=== PATIENT | female | born 1960 ===

== ENCOUNTER → 2024-12-02 13:23 | Outpatient (REF) | payer BC, SELFPAY | LOC: RAD 13:23 | PROVIDERS: ATTENDING PHYSICIAN Obstetrics & Gynecology Gynecologic Oncology; FAMILY PHYSICIAN Physician Assistant | DX: D47.3 Essential (hemorrhagic) thrombocythemia (principal); R63.4 Abnormal weight loss; D50.8 Other iron deficiency anemias; D51.8 Other vitamin B12 deficiency anemias; C56.9 Malignant neoplasm of unspecified ovary; D70.1 Agranulocytosis secondary to cancer chemotherapy; R11.0 Nausea; T45.1X5A Adverse effect of antineoplastic and immunosuppressive drugs, initial encounter | CPT/HCPCS: 71260; 74177; Q9967 ==

== ENCOUNTER 2024-12-20 08:27 | Inpatient (IN) | payer BC, SELFPAY ==
[2024-11-30 11:50] LABS: Hematocrit 20.8 % (37.0-47.0); Hemoglobin 6.9 g/dL (12.0-16.0); Mean Corp Hgb Conc. 33.2 g/dL (33.0-37.0); Mean Corpuscular Volume 100.0 fL (81.0-99.0); Platelet Count 124 10^3/uL (130-400); Red Cell Dist. Width 15.5 % (11.5-14.5)
[2024-11-30 12:23] LABS: ALT (SGPT) 38 U/L (0-35); AST (SGOT) 27 U/L (14-36); Albumin 4.1 g/dl (3.5-5.0); Alkaline Phosphatase 93 U/L (38-126); Blood Urea Nitrogen 7 mg/dl (7-17); Calcium 8.9 mg/dl (8.4-10.2); Carbon Dioxide 28 mmol/L (22-30); Chloride 102 mmol/L (98-107); Glucose 97 mg/dl (70-99); Potassium 4.1 mmol/L (3.5-5.1); Sodium 137 mmol/L (135-145); Total Protein 6.2 g/dl (6.3-8.2); eGFR > 60.00
[2024-11-30 14:19] VITALS: BMI 20.1
--- NOTE | 2024-12-19 06:26 | W.CON.GYNONC ---
Chief Complaint
-
ovary ca
History of Present Illness
64�year�old��white�female�referred�to�me�by�Dr.�Potz�for�possible�evaluation�of�ovarian�cancer.�she�notes�that�around�6�to�8
weeks�prior�to�the�visit�she�began�experiencing�persistent�but�vague�GI�complaints.�These�consisted�of�bloating,�vaginal constipation,�occasional�diarrhea,�and�intermittent�abdominal�pain.�Brought�the�symptoms�to�the�attention�of�her�primary�care
physician.�A�plain�CT�was�ordered�the�possibility�of�an�intra�abdominal�mass�lesion.�Sequently�CT�of�the�abdomen�and�pelvis�done
with�IV�and�oral�contrast�was�subsequently�performed[facility]at[facility]�showing�evidence�of�abdominal�carcinomatosis.
Was�also�ascites�which�was�considered�to�be�potentially�malignant.�No�defined�tumor�mass�was�identified.�Based�on�the�CT�results CA125�was�also�ordered�found�to�be�elevated.�
The�patient�was�in�no�acute�distress�when�seen.�She�had�an�appointment�earlier�this�year�with�Dr�Bruce�Lindsey�in�[place]�including�a
pelvic�exam.�There�were�no�worrisome�findings.�She�is�also�current�with�EGD�and�colonoscopy.�She�was�in�no�distress�when�seen but�she�was�quite�anxious.
Patient�presents�to�the�office�for�preop�evaluation.�She�underwent�neoadjuvant�chemotherapy�with�bevacizumab�Taxol�and carboplatin�May�30,�2025�as�well�a11/02/2024,�and�subsequently�received�only�Taxol�and�carboplatin�on�Lisset�14.�Her�CA125�was
239�on�day�1�cycle�1�and�diminished�to�20.6�on�Lisset�14. Patient�had�significant�anemia�couple�weeks�ago,�she�received�2�units�of�packed�red�blood�cell�transfusion.
Patient's�genetic�testing�was�inconclusive,�p53�mutation�was�identified�but�it�has�a�complex�genetic�findings�that�requires�special interpretation
Biopsy�of�the�tumor�May�23,�2024�shows�poorly�differentiated�carcinoma�gynecologic�origin.�P53�shows�normal�pattern�of expression
Foundation�testing�was�performed,�HRD�signature�was�negative,�Microsatellite�was�stable�and�TMB�was�low�at�6,�PD�L1�was�0
Past�medical�history�includes�hypertension,�JAK2�mutation,�essential�hemorrhagic�thrombocythemia,�iron�deficiency�anemia,�agerelated�osteoporosis Past�surgical�history�includes�vaginal�prolapse�repair,�cataract,�tubal�ligation
Family�history�Sister�with�breast�cancer�diagnosed�in�her�40s�she�is�unsure�whether�genetic�testing�was�done Social�history�patient�denies�current�tobacco�use,�she�is�,�drinks�alcohol�socially�less�than�1�2�drinks�per�week,�denies�any
drug�or�marijuana�abuse Medications�include Aspirin�81�mg Folic�acid�400�mcg�tablet Hydrea�500�mg�capsule Hydrochlorothiazide�25�mg�tablet Lisinopril�10�mg�p.o.�daily Prolia�60�mgsubcutaneous�injection
Medical History
Allergies
Allergies reflect when allergies were last updated in [facility].
No Known Allergies Allergy (Unverified 12/13/24 11:19)
Physical Exam
Physical Exam
Pelvic�Examination: External�normal�labia,�urethra,�anus.� Vagina:�Normal�mucosa.� Cervix:�normal�appearance,�scarred,�no�discharge.� Uterus:�normal�size.� Bimanual�examination�reveals�nodularity�in�the�posterior�cul�de�sac,�
RVE:�Posterior�cul�de�sac�nodularity�is�again�appreciated� General:�Well�developed,�well�nourished�patient.�In�no�acute�distress.�Patient�appears�stated�age. Head:�Atraumatic�and�normocephalic.
Eyes:�EOMI.�Sclerae�are�anicteric.�Pupils�are�equal,�round,�reactive�to�light�and�accommodation.�Conjunctivae�and�lids�are�normal in�appearance. Ears,�Nose,�Throat,�and�Mouth:�Normal�oral�mucosa�and�oropharynx.
Neck:�No�thyromegaly.�No�cervical�lymphadenopathy.�Neck�is�supple.�No�cervical�masses�present.�Trachea�is�midline. Lungs:�Clear�to�auscultation.�Good�air�movement�bilaterally.�No�respiratory�distress.
Cardiac:�Regular�rate.�Regular�rhythm.�No�murmurs�appreciated.�No�S3/S4�gallop.�No�rubs�or�clicks�noted.�PMI�is�not�displaced. Abdomen:�Abdomen�is�soft.�Non�tender�to�palpation.�Non�distended.�Without�masses.�Bowel�sounds�active.�No�ascites�present.
No�hepatomegaly.�No�splenomegaly.�No�hernia�present. Extremities:�No�edema.�No�cyanosis.�No�digital�clubbing.�No�discoloration. Hematologic/Lymphatic:�No�palpable�lymphadenopathy.�No�petechia.�No�purpura.
Musculoskeletal:�Normal�range�of�motion.�Strength�and�Tone�are�normal. Skin:Non�jaundiced.�No�petechia.�No�purpura. Neurologic:�Speech�is�fluent.�Normal�gait�and�station.�Cranial�nerves�intact.�There�are�no�sensory�deficits.�Motor�strength�equal
and�symmetrical.
Results
-
11/30/24 10:33
11/30/24 10:33
Impression / Plan
-
64�year�old�woman�who�is�presenting�with�findings�of�carcinomatosis�on�recent�CT�abdomen�and�pelvis.�,�Pathology�biopsy indicative�of�poorly�differentiated�gynecologic�malignancy�now�status�post�3�cycles�of�neoadjuvant�chemotherapy.�Most�recent�CT
shows�excellent�response�and�her�CA125�is�now�normal�range.�I�plan�to�proceed�with�surgery�as�planned�for�[place]�12. The�patient�will�then�be�scheduled�for�interval�debulking�surgery�[place]�.
She�understands�that�the�procedure�will�likely�include�laparotomy�with�AUGUSTIN/BSO�omentectomy�tumor�debulking�possibly�pelvic�or aortic�lymph�node�biopsies�and�bowel�resection.�
Informed�consent�was�signed�in�the�office�today.�Risk�of�surgery�including�infection�bleeding�injury�to�adjacent�organs�DVT pulmonary�embolism�and�cardiovascular�complications�were�discussed�and�reviewed.�Patient�will�resume�her�chemotherapy�once
fully�recovered�from�surgery. We�do�plan�to�have�repeat�labs�performed�in�[facility]'s�office Patient�will�return�back�in�approximately�2�weeks�postop�for�staple�removal�and�first�postop�visit
[2024-12-20] VITALS (12 sets, daily range): BP systolic 85–144; BP diastolic 54–86; BMI 20.1
[2024-12-20] MEDS: CELEBREX 200 MG PO (09:10)
[2024-12-20] MEDS: NEURONTIN 300 MG PO (09:10)
[2024-12-20] MEDS: NORMOSOL-R/PLASMALYTE-A 1000 IV (09:10)
[2024-12-20] MEDS: TYLENOL 1000 MG PO (09:11)
[2024-12-20] MEDS: HEPARIN 5000 UNITS SC (09:35)
--- NOTE | 2024-12-20 13:02 | W.IMMPOSTOP ---
Surgical Immed Post Op Note
-
Primary Surgeon: Hammad Hodge MD
Assisting Surgeon: Pam Samayoa PA-C
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
Post-op Diagnosis: Same pending final pathology
Procedure Performed: Exploratory laparotomy, radical tumor debulking including total abdominal hysterectomy, bilateral salpingo-oophorectomy, infracolic and gastrocolic omentectomy, resection of multiple peritoneal surfaces, pelvic lymph node
dissection, appendectomy
Anesthesia Type: General Endotracheal intubation
Specimen / Cultures: Omentum, uterus and cervix, right and left tube and ovary, right and left pelvic peritoneum, posterior cul-de-sac, anterior cul-de-sac, right paracolic gutter, right pelvic lymph nodes, appendix, small bowel implants
Estimated Blood Loss: 300 cc
Complications: None
Operative Findings: Intraoperative evaluation of the abdomen reveals excellent response to chemotherapy with decreased size of omental cake but there is residual omental disease, right and left diaphragms are normal right and left lobe of the liver
are normal gallbladder is intact stomach and lesser curvature does not exhibit any residual disease. Spleen is normal. Ascending transverse and descending colon was examined and there was only some implants on the cecum and right paracolic gutter
along the length of a ascending colon. There was tumor implants present on right and left pelvic peritoneum as well as posterior cul-de-sac completely resected, there were evidence of tumor on the serosa of the uterus. There was lack of any
significant adenopathy in the retroperitoneum and most enlarged lymph nodes were in the right pelvis. At completion of surgery she has less than 2 mm implants mostly on mid sigmoid as well as several small small bowel loops.
--- NOTE | 2024-12-20 13:12 | OR.RPT ---
Operative Report
Operative Report
Date of procedure: December 20, 2024
Primary Surgeon: Hammad Hodge MD
Assisting Surgeon: Pam Samayoa PA-C
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
Post-op Diagnosis: Same pending final pathology
Procedure Performed: Exploratory laparotomy, radical tumor debulking including total abdominal hysterectomy, bilateral salpingo-oophorectomy, infracolic and gastrocolic omentectomy, resection of multiple peritoneal surfaces, pelvic lymph node
dissection, appendectomy
Anesthesia Type: General Endotracheal intubation
Specimen / Cultures: Omentum, uterus and cervix, right and left tube and ovary, right and left pelvic peritoneum, posterior cul-de-sac, anterior cul-de-sac, right paracolic gutter, right pelvic lymph nodes, appendix, small bowel implants
Estimated Blood Loss: 300 cc
Complications: None
Operative Findings: Intraoperative evaluation of the abdomen reveals excellent response to chemotherapy with decreased size of omental cake but there is residual omental disease, right and left diaphragms are normal right and left lobe of the liver
are normal gallbladder is intact stomach and lesser curvature does not exhibit any residual disease. Spleen is normal. Ascending transverse and descending colon was examined and there was only some implants on the cecum and right paracolic gutter
along the length of a ascending colon. There was tumor implants present on right and left pelvic peritoneum as well as posterior cul-de-sac completely resected, there were evidence of tumor on the serosa of the uterus. There was lack of any
significant adenopathy in the retroperitoneum and most enlarged lymph nodes were in the right pelvis. At completion of surgery she has less than 2 mm implants mostly on mid sigmoid as well as several small small bowel loops.
Procedure in detail: This patient was taken to the operating room and placed in supine position. General anesthesia was administered, she was intubated without any difficulty she was placed in lithotomy position using yellowfin stirrups and prepped
in the abdomen perineum and vagina. Morris catheter was placed under sterile conditions. The patient was draped. Timeout procedure was carried out she received Ancef and Flagyl for prophylaxis. Midline vertical skin incision was made to gain
entry into the peritoneal cavity. A Bookwalter retractor was placed. We explored the abdomen with the findings noted above. Initially omentum was elevated infracolic and gastrocolic portion of the omentum was elevated and completely resected from
hepatic to splenic flexure as well as along the greater curvature of the stomach into the splenic hilum. Care was taken not to injure any vasculature involving the mesentery of the transverse colon as well as pancreas. Vessel sealer was used to
seal and divide multiple omental vessels. Following this we examined the upper abdomen and did not see any other evidence of residual disease I ran the bowel from ligament of Treitz down to the ileocecal valve, there was a portion of a ileum which
was adherent to tumor implants on the floor of the posterior cul-de-sac, the tumor implants was able to be removed superficially and she did not require bowel resection. I then ran the entire small bowel and implants of tumor was removed from the
serosa of the bowel without any difficulty and the mesentery did not have much disease. Cecum was mobilized by opening the peritoneum along the paracolic gutter, implants of the cecum was resected and implants along the right paracolic gutter and
ascending colon was resected and submitted to pathology. Round ligaments were sealed and divided anterior and posterior leaves of the broad ligament were dissected open. Pararectal and paravesical spaces were developed the course of the ureter was
identified and both ureters were tagged with Vesseloops. Anterior cul-de-sac peritoneum was resected and submitted to pathology both IP ligaments were sealed 3 times and divided tubes and ovaries were detached from the uterus and submitted to
pathology separately uterine vessels were skeletonized uterine vessels followed by cardinal ligaments followed by uterosacral ligaments were sealed and divided. Right angle Zeppelin clamps were placed below the level of the cervix, specimen
including cervix and uterus was transected we closed the vagina with a running suture of 0 Vicryl starting from both ends coming to the center and going back to both ends incorporating uterosacral ligaments. The entire peritoneum along the right
and left pelvis was resected including that in the posterior cul-de-sac after the colon was dropped and . These were submitted to pathology there was no injury to uterine vessels or colon. I insufflated the colon with air and filled the
pelvis with water and there was no leakage. Retroperitoneal spaces were examined and there was no significant adenopathy the only enlarged lymph nodes were along the right pelvic lymph nodes along the external iliac artery and vein and these were
removed and submitted to pathology. Appendix was mobilized a large portion of the mesoappendix was sealed and divided with vessel sealer and CLIFTON 60 stapler was fired on the cecum and the specimen was submitted to pathology. We irrigated all
quadrants of the abdomen and there was no other visible residual disease. All laps and instruments were removed we prepared to close the abdomen, the fascia was closed with 0 Vicryl suture ligature starting from both ends coming to the center and
they were tied to each other. Subcutaneous tissue was made's hemostatic, I went ahead and used the 2-0 Monocryl suture in a running fashion to close that incision. Eleanor were used on the skin dressing was applied Morris was left in the bladder
and patient was awakened extubated and returned back to recovery room stable awake and extubated condition. Counts of laps instruments and needle was correct x 2. I was present and scrubbed for entire procedure as dictated above
[2024-12-20] MEDS: DILAUDID 0.25 MG IV ×2 (13:18→14:20)
[2024-12-20 14:00] LABS: Hematocrit 30.4 % (37.0-47.0); Hemoglobin 10.1 g/dL (12.0-16.0); Mean Corp Hgb Conc. 33.2 g/dL (33.0-37.0); Mean Corpuscular Volume 100.0 fL (81.0-99.0); Platelet Count 385 10^3/uL (130-400); Red Cell Dist. Width 16.6 % (11.5-14.5)
[2024-12-20 14:10] LABS: Blood Urea Nitrogen 11 mg/dl (7-17); Calcium 8.4 mg/dl (8.4-10.2); Carbon Dioxide 21 mmol/L (22-30); Chloride 109 mmol/L (98-107); Estimated Creatinine Clearance 69 ml/min; Glucose 96 mg/dl (70-99); Potassium 3.7 mmol/L (3.5-5.1); Sodium 136 mmol/L (135-145); eGFR > 60.00
--- NOTE | 2024-12-20 14:37 | CON.HOSP ---
Addendum entered and electronically signed by Neo Gimenez MD 12/20/24 16:01:
This is an addendum to H&P written by Nikki Zheng on 12/20/2024. �Patient seen and examined independently with [employer].
64-year-old female past medical history of ovarian cancer status post chemotherapy, thrombocytosis, JAK2 mutation, hypertension, anemia, osteoporosis who underwent elective debulking with hysterectomy/omentectomy and appendectomy today. �Hospitalist
consult for medical management.
300 cc blood loss.
Blood pressure 95/54.
Hold antihypertensive medications which she has not been taking. �Clear liquid diet. �IV fluids. �Pain control with Tylenol.
Original Note:
Consultation
-
Date/Time Consultation Requested: 12/20/2024 1258
Date/Time Consultation Performed: 12/20/2024 1403
Requesting Provider: Dr. Hammad Hodge
Performing Provider: Dr. Jacquelin Gimenez and Jill SANCHEZ
Reason for Consultation: medical management
Family Physician
-
Family Physician: Claudia Martinez
Chief Complaint
-
medical management consult
History of Present Illness
Patient is a 64-year-old female with past medical history significant for hypertension, iron deficiency anemia, thrombocythemia and ovarian cancer who is presents to [facility] for radical tumor debulking including total abdominal hysterectomy, bilateral
salpingo-oophorectomy, infracolic and gastrocolic omentectomy, resection of multiple peritoneal surfaces, pelvic lymph node dissection and appendectomy with Dr. Hammad Hodge for ovarian cancer. Patient chemo therapy on hold until fully recovered from
surgery. Patient offers no complaints. Reports she has not taken blood pressure medications this week and monitors blood pressure at home with SBP ranging 130-140.
Medical History
Past Medical History
Past Medical History: Reports Other
Additional Past Medical History:
hypertension
iron deficiency anemia
thrombocythemia
ovarian cancer
Past Surgical History: Reports Other
Additional Past Surgical History:
vaginal prolapse repair
cataract extraction
tubal ligation
Social History
Tobacco: Non-smoker
Alcohol: Occasional
Drug: None
Family History
Family History: Other (Sister: breast cancer)
Allergies / Home Medications
Allergies reflects when Allergies were last updated in [employer]
Home Medications with original date entered in [employer]
Allergy/Medication List:
Allergies
Allergy/AdvReac Type Severity Reaction Status Date / Time
No Known Allergies Allergy Unverified 12/20/24 08:37
Home Medications
Dulcolax (bisacodyl) 1 dose PO DIRECTED 12/13/24
Miralax 1 dose PO DIRECTED 12/13/24
aspirin 81 mg tablet 81 mg PO DAILY 12/13/24
calcium 1 dose PO DAILY 12/13/24
cyanocobalamin (vitamin B-12) 1 dose PO DAILY 12/13/24
hydrochlorothiazide 25 mg tablet 25 mg PO DAILY 12/13/24
lisinopril 10 mg tablet 10 mg PO HS 12/13/24
Review of Systems
-
History Source: Patient
Constitutional: Reports No Symptoms
EENT: Reports No Symptoms
Respiratory: Reports No Symptoms
Cardiac: Reports No Symptoms
Abdomen/GI: Reports No Symptoms
: Reports No Symptoms
Musculoskeletal: Reports No Symptoms
Skin: Reports No Symptoms
Neurological: Reports No Symptoms
Endocrine: Reports No Symptoms
Hematologic/Lymphatic: Reports No Symptoms
Psych: Reports No Symptoms
Physical Exam
Vital Signs
Vital Signs
Temp Pulse Resp BP Pulse Ox
97.5 F 78 18 95/54 100
12/20/24 12:48 12/20/24 13:15 12/20/24 13:15 12/20/24 13:15 12/20/24 13:15
Physical Exam
General: Well Developed, Well Nourished, No Apparent Distress and Comfortable; Negative Respiratory Distress
HEENT: Normocephalic, Moist Mucous Membranes and Atraumatic
Respiratory: Clear and Non Labored Respirations
Cardiac: S1/S2 and Regular Rhythm; Negative Murmur or Rub
Breast: Deferred by me
GI: Soft, Non Distended, Normal Bowel Sounds, Tender and Other (incisional dressing in place)
Rectal: Deferred by Provider
Musculoskeletal: No Clubbing, No Cyanosis and No Edema
Skin: Warm
Neuro: Awake, AO x 3 and Nonfocal/Grossly Intact
Psych: Calm and Intact Judgement
Laboratory Results
-
Laboratory Results
12/20/24 13:47
12/20/24 13:47
Total Bilirubin 0.5 mg/dl (0.2-1.3) 11/30/24 10:33
AST 27 U/L (14-36) 11/30/24 10:33
ALT 38 U/L (0-35) H 11/30/24 10:33
Alkaline Phosphatase 93 U/L (38-126) 11/30/24 10:33
Data Reviewed
-
Lab Data: Labs Reviewed
Impression / Plan
-
IMPRESSION/PLAN:
#s/p exploratory laparotomy, radical tumor debulking including total abdominal hysterectomy, bilateral salpingo-oophorectomy, infracolic and gastrocolic omentectomy, resection of multiple peritoneal surfaces, pelvic lymph node dissection and
appendectomy with Dr. Hodge
- managed by Dr. Hodge
#hypertension
- hold lisinopril and HCTZ for soft BP
- monitor BP
#iron deficiency anemia
#thrombocythemia
hgb 10.1, hct 30.4, plt 385
- stable, monitor CBC
#ovarian cancer
follows with Dr. Hodge at [place]
- continue to follow up out patient
Code status: full code
DVT prophylaxis: Lovenox and SCDs
[2024-12-20] MEDS: NSS 1000 IV (15:45)
[2024-12-20] MEDS: MOTRIN 400 MG PO ×2 (17:11→23:12)
[2024-12-20] MEDS: TYLENOL 650 MG PO ×2 (17:12→23:12)
[2024-12-20] MEDS: LOVENOX 30 MG SC (17:12)
--- NOTE | 2024-12-20 17:43 | PTCARENOTE ---
Pt arrived 1530 from PACU. VSS. IVF infusing. knutson draining orange urine. primaseal dressing with scant drainage. oriented to room and call burnett. bed locked and in lowest position.
--- NOTE | 2024-12-20 19:26 | W.PN.GYNONC ---
Today's Communication
-
Labs in a.m., advance diet as tolerated
Impression / Plan
-
64�year�old�woman�who�is�presenting�with�findings�of�carcinomatosis�on�recent�CT�abdomen�and�pelvis.�,�Pathology�biopsy indicative�of�poorly�differentiated�gynecologic�malignancy�now�status�post�3�cycles�of�neoadjuvant�chemotherapy.�
She underwent interval debulking surgery including removal of uterus cervix bilateral tubes and ovaries appendix multiple peritoneal surfaces and omentum. Intraoperative findings and procedures were reviewed
She is on IV fluids 100 cc an hour, Morris catheter is in place draining yellow urine
Labs indicate stable hemoglobin and electrolytes
I encouraged her to use incentive spirometer
Subjective / Interval History
-
Postop day 0 status post interval debulking surgery for ovarian cancer
She is sitting in her bed, does not have any significant complaints. OR procedures and findings were discussed and reviewed
Objective Data
-
Lab Results:
12/20/24 13:47
12/20/24 13:47
Physical Exam
Vital Signs / I&O
Vitals
Temp Pulse Resp BP Pulse Ox
98.3 F 98 16 121/75 97
12/20/24 18:30 12/20/24 18:30 12/20/24 18:30 12/20/24 18:30 12/20/24 18:30
I&O
12/18/24 12/19/24 12/20/24 12/21/24
06:59 06:59 06:59 06:59
Intake Total 760 / 760
Output Total 230 / 230
Balance 530 / 530
Physical Exam
General: No Apparent Distress
Respiratory: Clear
Cardiac: S1/S2 and Regular Rhythm
GI: Soft, Non Tender and Other (Abdominal incision dressing is dry intact)
[2024-12-20] MEDS: DILAUDID 0.5 MG IV (19:37)
[2024-12-21] MEDS: NSS 1000 IV ×2 (00:10→15:32)
[2024-12-21 03:00] VITALS: BP 118/71
[2024-12-21] MEDS: MOTRIN 400 MG PO ×4 (05:01→23:03)
[2024-12-21] MEDS: TYLENOL 650 MG PO ×4 (05:01→23:03)
--- NOTE | 2024-12-21 05:33 | W.PN.GYNONC ---
Addendum entered and electronically signed by Hammad Hodge MD 12/21/24 08:05:
Hgb is 7.8
patient has stable VS
she is s/p NACT (chemo) and her pre op hgb probably was hemoconcentrated
I think she is actually 7.8 now equilibrated.
i will repeat cbc at 1230 again,
will transfuse for hgb <7
Hammad Hodge MD
Original Note:
Today's Communication
-
out of bed
dc knutson
advance to regular diet
Impression / Plan
-
64�year�old�s/p underwent interval debulking surgery including removal of uterus cervix bilateral tubes and ovaries appendix multiple peritoneal surfaces and omentum. Intraoperative findings and procedures were reviewed
She is on IV fluids 100 cc an hour, reduce to 40 cc/hr
Knutson catheter is in place draining yellow urine, can be removed this am
follow labs this am
I encouraged her to use incentive spirometer
OOB and ambulate
Subjective / Interval History
-
POD1
she slept well, pain is well controlled
pilo clears ok
Physical Exam
Vital Signs / I&O
Vitals
Temp Pulse Resp BP Pulse Ox
98.0 F 80 16 118/71 97
12/21/24 03:00 12/21/24 03:00 12/21/24 03:00 12/21/24 03:00 12/21/24 03:00
I&O
12/18/24 12/19/24 12/20/24 12/21/24
06:59 06:59 06:59 06:59
Intake Total 760 / 760
Output Total 230 / 230
Balance 530 / 530
Physical Exam
General: No Apparent Distress and Comfortable
HEENT: Normocephalic
Respiratory: Clear and Non Labored Respirations
Cardiac: S1/S2 and Regular Rhythm
GI: Soft, Non Tender, Non Distended and Other (midline incision with dressing)
Genito-urinary: Knutson Catheter
Musculoskeletal: No Cyanosis and No Edema
Neuro: Awake and Alert
--- NOTE | 2024-12-21 06:01 | PTCARENOTE ---
Removed pt's eamon @ 0600. pt tolerated well. Pt educated on DTV time. Adjusted IVF per order. Care ongoing.
[2024-12-21 07:05] VITALS: BP 139/73
[2024-12-21 07:10] LABS: ALT (SGPT) 17 U/L (0-35); AST (SGOT) 21 U/L (14-36); Albumin 2.7 g/dl (3.5-5.0); Alkaline Phosphatase 44 U/L (38-126); Blood Urea Nitrogen 11 mg/dl (7-17); Calcium 8.2 mg/dl (8.4-10.2); Carbon Dioxide 20 mmol/L (22-30); Chloride 109 mmol/L (98-107); Estimated Creatinine Clearance 69 ml/min; Glucose 85 mg/dl (70-99); Potassium 4.3 mmol/L (3.5-5.1); Sodium 132 mmol/L (135-145); Total Protein 4.6 g/dl (6.3-8.2); eGFR > 60.00
[2024-12-21 07:20] LABS: Hematocrit 23.0 % (37.0-47.0); Hemoglobin 7.8 g/dL (12.0-16.0); Mean Corp Hgb Conc. 33.9 g/dL (33.0-37.0); Mean Corpuscular Volume 97.0 fL (81.0-99.0); Nucleated Red Blood Cells % 0 %; Platelet Count 355 10^3/uL (130-400); Red Cell Dist. Width 16.9 % (11.5-14.5)
[2024-12-21] MEDS: ROXICODONE 5 MG PO ×2 (07:57→16:46)
[2024-12-21] MEDS: LOW STRENGTH ASPIRIN 81 MG PO (07:58)
--- NOTE | 2024-12-21 08:00 | W.PN.HOSP.TC ---
Today's Communication/Plan
-
Blood pressure (BP) improved -- continue to monitor
Will resume PO BP meds depending on BP trend
Assessment / Plan
Assessment / Plan
Physical Exam
General: Well Developed, Well Nourished, No Apparent Distress and Comfortable; Negative Respiratory Distress
HEENT: Normocephalic, Moist Mucous Membranes and Atraumatic
Respiratory: Clear and Non Labored Respirations
Cardiac: S1/S2 and Regular Rhythm; Negative Murmur or Rub
Breast: Deferred by me
GI: Soft, Non Distended, Normal Bowel Sounds, Tender and Other (incisional dressing in place)
Rectal: Deferred by Provider
Musculoskeletal: No Clubbing, No Cyanosis and No Edema
Skin: Warm
Neuro: Awake, AO x 3 and Nonfocal/Grossly Intact
Psych: Calm and Intact Judgement
Assessment/Plan
64-year-old female past medical history of ovarian cancer status post chemotherapy, thrombocytosis, JAK2 mutation, hypertension, anemia, osteoporosis who underwent elective debulking with hysterectomy/omentectomy and appendectomy today. Hospitalist
consult for medical management. 300 cc blood loss. Blood pressure 95/54. Hold antihypertensive medications which she has not been taking. Clear liquid diet. IV fluids. Pain control with Tylenol.
64-year-old female with past medical history significant for hypertension, iron deficiency anemia, thrombocythemia and ovarian cancer who is presents to [facility] for radical tumor debulking including total abdominal hysterectomy, bilateral
salpingo-oophorectomy, infracolic and gastrocolic omentectomy, resection of multiple peritoneal surfaces, pelvic lymph node dissection and appendectomy with Dr. Hammad Hodge for ovarian cancer. Patient chemo therapy on hold until fully recovered from
surgery. Patient offers no complaints. Reports she has not taken blood pressure medications this week and monitors blood pressure at home with SBP ranging 130-140.
#Status post exploratory laparotomy, radical tumor debulking including total abdominal hysterectomy, bilateral salpingo-oophorectomy, infracolic and gastrocolic omentectomy, resection of multiple peritoneal surfaces, pelvic lymph node dissection and
appendectomy with Dr. Hodge
- managed by Dr. Hodge
-Morris catheter removed by Dr. Hodge today
- Incentive Spirometer to prevent post-op atelectasis
- OOB and ambulate as much as possible
#hypertension
- hold lisinopril and HCTZ for soft BP
- monitor BP
#iron deficiency anemia
#thrombocythemia
- Hgb dropped
- Dr. Hodge will transfuse if needed
#ovarian cancer
follows with Dr. Hodge at [place]
- continue to follow up out patient
Code status: full code
DVT prophylaxis: Lovenox and SCDs
Anticipated Discharge: > 48 hours
Subjective/Interval History
-
Date of Service: December 21, 2024
Patient was seen and examined. She denied any symptoms or complaints.
Objective Data
-
Labs:
Laboratory Results
12/21/24 12/21/24 12/21/24
06:20 06:21 12:30
WBC 8.2 Pending
Hgb 7.8 L D Pending
Hct 23.0 L Pending
Plt Count 355 Pending
Sodium 132 L
Potassium 4.3
Chloride 109 H
Carbon Dioxide 20 L
BUN 11
Creatinine 0.6
Glucose 85
Calcium 8.2 L
Total Bilirubin 0.5
AST 21
ALT 17
Alkaline Phosphatase 44
Vital Signs:
Vital Signs
Temp Pulse Resp BP Pulse Ox
98.0 F 80 16 118/71 97
12/21/24 03:00 12/21/24 03:00 12/21/24 03:00 12/21/24 03:00 12/21/24 03:00
I&O
12/20/24 12/21/24 12/22/24
06:59 06:59 06:59
Intake Total 1720 / 1720
Output Total 755 / 755
Balance 965 / 965
[2024-12-21 11:00] VITALS: BP 131/71
[2024-12-21 12:48] LABS: Hematocrit 23.1 % (37.0-47.0); Hemoglobin 7.9 g/dL (12.0-16.0); Mean Corp Hgb Conc. 34.2 g/dL (33.0-37.0); Mean Corpuscular Volume 97.5 fL (81.0-99.0); Platelet Count 367 10^3/uL (130-400); Red Cell Dist. Width 17.1 % (11.5-14.5)
--- NOTE | 2024-12-21 13:20 | PN.CDI ---
CDI
- -
CDI:
Physician Documentation Request
Admit Date: 12/20/24 08:27
Dear Doctor Ayesha,
patient is s/p interval debulking surgery.
Sodium results:
Laboratory Tests
12/20/24 12/21/24
13:47 06:20
Sodium 136 132 L
Please provide a diagnosis that supports the above lab abnormalities and additional evaluation/monitoring:
Hyponatremia
abnormal lab value clinically insignificant
Other
Use of terms such as suspected, likely, concern for, or probable (associated with a specific diagnosis that is being evaluated, monitored, or treated as if it exists) are acceptable and can be coded in the inpatient setting, when documented at the
time of discharge.
Thank you,
Barbie Foley RN, BSN
CDI Specialist
tiger text
Please use your independent medical judgment in providing your response.
[2024-12-21 15:36] VITALS: BP 113/62
--- NOTE | 2024-12-21 16:27 | CM ---
Patient seen at bedside
IA Completed
Lives with in 1 story home, 3 [address]
plof: Independent
denies DME
Denies VN/Rehab
Denies insecurities
PCP: Claudia Martinez
Pharmacy: [address], [place]
PLAN: Home, no needs anticipated
[2024-12-21] MEDS: LOVENOX 30 MG SC (18:27)
[2024-12-21 23:03] VITALS: BP 119/65
[2024-12-22] MEDS: MOTRIN 400 MG PO ×2 (05:02→12:44)
[2024-12-22] MEDS: TYLENOL 650 MG PO ×2 (05:02→12:44)
[2024-12-22 05:18] LABS: Hematocrit 22.3 % (37.0-47.0); Hemoglobin 7.6 g/dL (12.0-16.0); Mean Corp Hgb Conc. 34.1 g/dL (33.0-37.0); Mean Corpuscular Volume 97.0 fL (81.0-99.0); Nucleated Red Blood Cells % 0 %; Platelet Count 360 10^3/uL (130-400); Red Cell Dist. Width 17.0 % (11.5-14.5)
[2024-12-22 05:36] LABS: ALT (SGPT) 22 U/L (0-35); AST (SGOT) 28 U/L (14-36); Albumin 3.1 g/dl (3.5-5.0); Alkaline Phosphatase 54 U/L (38-126); Blood Urea Nitrogen 8 mg/dl (7-17); Calcium 8.7 mg/dl (8.4-10.2); Carbon Dioxide 23 mmol/L (22-30); Chloride 111 mmol/L (98-107); Estimated Creatinine Clearance 69 ml/min; Glucose 89 mg/dl (70-99); Potassium 3.8 mmol/L (3.5-5.1); Sodium 136 mmol/L (135-145); Total Protein 5.1 g/dl (6.3-8.2); eGFR > 60.00
--- NOTE | 2024-12-22 05:55 | W.PN.GYNONC ---
Today's Communication
-
N/A
Impression / Plan
-
64�year�old�s/p underwent interval debulking surgery including removal of uterus cervix bilateral tubes and ovaries appendix multiple peritoneal surfaces and omentum. Intraoperative findings and procedures were reviewed
1. IV fluids discontinued
2. hyponatremia, due to bowel prep and dilutional post op now improved
3. Hgb stable in upper 7 range, not symptomatic. this is due to pre op chemo (myelosuppression) and acute blood loss of surgery
4. regular diet
5. increase ambulation
6. will ask for PT evaluation and case management for home VNA
Subjective / Interval History
-
she slept better, pain is controlled, tolerating dome food
voiding ok
Objective Data
-
Lab Results:
12/22/24 05:00
12/22/24 05:00
Physical Exam
Vital Signs / I&O
Vitals
Temp Pulse Resp BP Pulse Ox
98.5 F 100 17 119/65 97
12/21/24 23:03 12/21/24 23:03 12/21/24 23:03 12/21/24 23:03 12/21/24 23:03
I&O
12/19/24 12/20/24 12/21/24 12/22/24
06:59 06:59 06:59 06:59
Intake Total 1720 / 1720 660 / 660
Output Total 755 / 755 950 / 950
Balance 965 / 965 -290 / -290
Physical Exam
HEENT: Normocephalic
Respiratory: Clear
Cardiac: S1/S2 and Regular Rhythm
GI: Soft and Non Distended
Neuro: Awake and Oriented
[2024-12-22 07:05] VITALS: BP 110/58
[2024-12-22] MEDS: LOW STRENGTH ASPIRIN 81 MG PO (08:16)
[2024-12-22] MEDS: SENOKOT 8.6 MG PO (08:19)
--- NOTE | 2024-12-22 10:06 | W.PN.HOSP.TC ---
Today's Communication/Plan
-
Resume Lisinopril
Anticipated discharge later today
Assessment / Plan
Assessment / Plan
Physical Exam
General: Well Developed, Well Nourished, No Apparent Distress and Comfortable; Negative Respiratory Distress
HEENT: Normocephalic, Moist Mucous Membranes and Atraumatic
Respiratory: Clear and Non Labored Respirations
Cardiac: S1/S2 and Regular Rhythm; Negative Murmur or Rub
Breast: Deferred by me
GI: Soft, Non Distended, Normal Bowel Sounds, Tender and Other (incisional dressing in place)
Rectal: Deferred by Provider
Musculoskeletal: No Clubbing, No Cyanosis and No Edema
Skin: Warm
Neuro: Awake, AO x 3 and Nonfocal/Grossly Intact
Psych: Calm and Intact Judgement
Assessment/Plan
64-year-old female past medical history of ovarian cancer status post chemotherapy, thrombocytosis, JAK2 mutation, hypertension, anemia, osteoporosis who underwent elective debulking with hysterectomy/omentectomy and appendectomy today. Hospitalist
consult for medical management. 300 cc blood loss. Blood pressure 95/54. Hold antihypertensive medications which she has not been taking. Clear liquid diet. IV fluids. Pain control with Tylenol.
64-year-old female with past medical history significant for hypertension, iron deficiency anemia, thrombocythemia and ovarian cancer who is presents to [facility] for radical tumor debulking including total abdominal hysterectomy, bilateral
salpingo-oophorectomy, infracolic and gastrocolic omentectomy, resection of multiple peritoneal surfaces, pelvic lymph node dissection and appendectomy with Dr. Hammad Hodge for ovarian cancer. Patient chemo therapy on hold until fully recovered from
surgery. Patient offers no complaints. Reports she has not taken blood pressure medications this week and monitors blood pressure at home with SBP ranging 130-140.
#Status post exploratory laparotomy, radical tumor debulking including total abdominal hysterectomy, bilateral salpingo-oophorectomy, infracolic and gastrocolic omentectomy, resection of multiple peritoneal surfaces, pelvic lymph node dissection and
appendectomy with Dr. Hodeg
- managed by Dr. Hogde
-Morris catheter removed by Dr. Hodge on 12/21/24
- Incentive Spirometer to prevent post-op atelectasis
- OOB and ambulate as much as possible
#hypertension
- Resume Lisinopril today -- Dr. Hodge is in agreement with this
- Continue to hold HCTZ for now while assessing response after resuming Lisinopril today
- monitor BP
#iron deficiency anemia
#thrombocythemia
- Hgb dropped
- Dr. Hodge will transfuse if needed
#ovarian cancer
follows with Dr. Hodge at [place]
- continue to follow up out patient
Code status: full code
DVT prophylaxis: Lovenox and SCDs
Anticipated Discharge: Today
Subjective/Interval History
-
Date of Service: December 22, 2024
Patient was seen and examined. She denied any fever, chest pain, shortness of breath or any other symptoms or complaints.
Objective Data
-
Labs:
Laboratory Results
12/22/24
05:00
WBC 6.9
Hgb 7.6 L
Hct 22.3 L
Plt Count 360
Sodium 136
Potassium 3.8
Chloride 111 H
Carbon Dioxide 23
BUN 8
Creatinine 0.6
Glucose 89
Calcium 8.7
Total Bilirubin 0.4
AST 28
ALT 22
Alkaline Phosphatase 54
Vital Signs:
Vital Signs
Temp Pulse Resp BP Pulse Ox
98.6 F 98 17 110/58 98
12/22/24 07:05 12/22/24 07:05 12/22/24 07:05 12/22/24 07:05 12/22/24 07:05
I&O
12/21/24 12/22/24 12/23/24
06:59 06:59 06:59
Intake Total 1720 / 1720 660 / 660
Output Total 755 / 755 950 / 950
Balance 965 / 965 -290 / -290
[2024-12-22 12:45] VITALS: BP 142/88; PULSE 111
--- NOTE | 2024-12-22 12:57 | PTOTSP ---
The patient is independent with ambulation and elevations, offering no concerns regarding mobility upon return home and will have available to assist as needed. No PT needs identified at this time, will sign off. Encouraged continued
ambulation while hospitalized.
--- NOTE | 2024-12-22 14:34 | CM ---
CM Consult completed: Met with patient at bedside; agreeable for home health/VN; agency options identified; referral sent to [facility]
[2024-12-22 15:12] VITALS: BP 126/76
--- NOTE | 2024-12-22 15:24 | VNURNOTE ---
Home Health Liaison met with patient and spouse at bedside to discuss [facility] nurse/therapy, visits, schedule and homebound status. Patient is agreeable and understands that visits at home will be 2-3 x per week to assess and teach medical
management.
Patient is aware that [facility] will contact them for start of care in 1-2 days after discharge from .
[facility] referral completed in [facility].
--- NOTE | 2024-12-24 10:50 | W.DCSUMMARY ---
Addendum entered and electronically signed by Hammad Hodge MD 12/27/24 08:33:
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
FINAL DIAGNOSIS
A. Small bowel implant �
Metastatic serous carcinoma.
B. Right gutter �
Metastatic serous carcinoma.
C. Cecum implant �
Metastatic serous carcinoma.
D. Left ovary and fallopian tube, LSO �
Metastatic serous carcinoma involving ovary and adnexal soft tissue.
Atrophic ovary and fallopian tube.
Benign paratubal cysts.
E. Appendix, appendectomy �
Metastatic serous carcinoma, serosal implants, multiple.
Unremarkable appendix.
F. Right ovary and fallopian tube, RSO �
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
? Metastatic serous carcinoma involving ovary and adnexal soft tissue.
? Atrophic ovary and fallopian tube.
Benign paratubal cysts.
G. Additional small bowel implant �
Metastatic serous carcinoma.
H. Omentum, omentectomy �
Metastatic serous carcinoma.
I. Right pelvic lymph nodes �
Three negative lymph nodes (0/3).
J. Right round ligament �
Metastatic serous carcinoma.
K. Posterior cul-de-sac �
Metastatic serous carcinoma.
L. Uterus and cervix, AUGUSTIN �
Metastatic serous carcinoma involving uterine serosa and paracervical tissue.
Atrophic cervix and endometrium.
M. Left pelvic peritoneum �
Metastatic serous carcinoma.
N. Right pelvic peritoneum �
Metastatic serous carcinoma.
Dictated by: Tapan De La Torre MD
Original Note:
Discharge Summary
Discharge Data
Date of Admission: 12/20/24
Date of Discharge: 12/22/24
-
Pending Results: No
Hospital Course
This is a 64-year-old white female �white�female�referred�to�me�by�Dr.�Potz�for�possible�evaluation�of�ovarian�cancer.�she�notes�that�around�6�to�8
weeks�prior�to�the�visit�she�began�experiencing�persistent�but�vague�GI�complaints.�These�consisted�of�bloating,�vaginal constipation,�occasional�diarrhea,�and�intermittent�abdominal�pain.�Brought�the�symptoms�to�the�attention�of�her�primary�care
physician.�A�plain�CT�was�ordered�the�possibility�of�an�intra�abdominal�mass�lesion.�Sequently�CT�of�the�abdomen�and�pelvis�done
with�IV�and�oral�contrast�was�subsequently�performed[facility]at[facility]�showing�evidence�of�abdominal�carcinomatosis.
Was�also�ascites�which�was�considered�to�be�potentially�malignant.�No�defined�tumor�mass�was�identified.�Based�on�the�CT�results CA125�was�also�ordered�found�to�be�elevated.�
The�patient�was�in�no�acute�distress�when�seen.�She�had�an�appointment�earlier�this�year�with�Dr�Bruce�Lindsey�in�[place]�including�a
pelvic�exam.�There�were�no�worrisome�findings.�She�is�also�current�with�EGD�and�colonoscopy.�She�was�in�no�distress�when�seen but�she�was�quite�anxious.
Patient�presents�to�the�office�for�preop�evaluation.�She�underwent�neoadjuvant�chemotherapy�with�bevacizumab�Taxol�and carboplatin�May�30,�5�as�well�a11/02/2024,�and�subsequently�received�only�Taxol�and�carboplatin�on�Lisset�14.�Her�CA125�was
239�on�day�1�cycle�1�and�diminished�to�20.6�on�Lisset�14. Patient�had�significant�anemia�couple�weeks�ago,�she�received�2�units�of�packed�red�blood�cell�transfusion.
Patient's�genetic�testing�was�inconclusive,�p53�mutation�was�identified�but�it�has�a�complex�genetic�findings�that�requires�special interpretation
Biopsy�of�the�tumor�May�2�shows�poorly�differentiated�carcinoma�gynecologic�origin.�P53�shows�normal�pattern�of expression
Foundation�testing�was�performed,�HRD�signature�was�negative,�Microsatellite�was�stable�and�TMB�was�low�at�6,�PD�L1�was�0
Patient was taken to the operating room on December 20, 2024, she underwent exploratory laparotomy AUGUSTIN/BSO omentectomy resection of multiple peritoneal surfaces right pelvic lymphadenectomy, resection of implants from cecum, appendectomy and was
considered with residual disease less than 5 mm at the completion of surgical procedure. She tolerated procedure well, was found to have anemia which was due to preoperative chemotherapy as well as acute blood loss from surgery, hemoglobin remained
stable between 7.5 and 8. The patient tolerated diet well, she was ambulating, she was seen by hospitalist team as well as physical therapy and case management and was discharged home with plans for follow-up in 2 weeks.
Past�medical�history�includes�hypertension,�JAK2�mutation,�essential�hemorrhagic�thrombocythemia,�iron�deficiency�anemia,�agerelated�osteoporosis Past�surgical�history�includes�vaginal�prolapse�repair,�cataract,�tubal�ligation
Family�history�Sister�with�breast�cancer�diagnosed�in�her�40s�she�is�unsure�whether�genetic�testing�was�done Social�history�patient�denies�current�tobacco�use,�she�is�,�drinks�alcohol�socially�less�than�1�2�drinks�per�week,�denies�any
drug�or�marijuana�abuse Medications�include Aspirin�81�mg Folic�acid�400�mcg�tablet Hydrea�500�mg�capsule Hydrochlorothiazide�25�mg�tablet Lisinopril�10�mg�p.o.�daily Prolia�60�mgsubcutaneous�injection
Discharge Plan
-
Patient Disposition: Home (Routine Discharge)
Discharge Diagnosis/Procedures: Ovary cancer
Condition: Good
Diet: No restrictions
Activity: No strenuous activity
Additional Activity: Do not drive for 2 weeks, Do not lift more than 10 lbs for 2 weeks, walk 10 min intervals 3-4 times per day
Driving Restrictions: No driving for 2 weeks
Bathing Restrictions: OK to Shower
Other Services: VN
Referrals:
Claudia Martinez PA-C [Family Provider, General]
Hammad Hodge MD [Active, [employer] On[facility]] - 01/02/25
Prescriptions:
New
lisinopril 10 mg Tablet
10 mg PO DAILY 30 Days Qty: 30 3RF
hydrochlorothiazide 25 mg Tablet
25 mg PO DAILY 30 Days Qty: 30 1RF
Continued
lisinopril 10 mg Tablet
10 mg PO HS
aspirin 81 mg Tablet
81 mg PO DAILY
hydrochlorothiazide 25 mg Tablet
25 mg PO DAILY
calcium
1 dose PO DAILY
cyanocobalamin (vitamin B-12)
1 dose PO DAILY
Dulcolax (bisacodyl)
1 dose PO DIRECTED
Patient Comments:
day before surgery as directed
Miralax
1 dose PO DIRECTED
Patient Comments:
day before surgery
Discharge Orders:
Discharge Patient (As Directed); Ordered 12/22/24
Ordered By: Hammad Hodge
Discharge Date and Time
Discharge Date/Time: 12/22/24 15:51
Print Language: WELSH
== END 2024-12-22 15:51 | disposition home health service (06) | DRG 737 ==
LOC: 2 SOUTH 08:27
PROVIDERS: ADMITTING PHYSICIAN Obstetrics & Gynecology Gynecologic Oncology; FAMILY PHYSICIAN Physician Assistant; OTHER PHYSICIAN Hospitalist
PROC: 0DTJ0ZZ Resection of Appendix, Open Approach (ICD-10-PCS; 2024-12-20)
PROC: 0UT20ZZ Resection of Bilateral Ovaries, Open Approach (ICD-10-PCS; 2024-12-20)
PROC: 0UT70ZZ Resection of Bilateral Fallopian Tubes, Open Approach (ICD-10-PCS; 2024-12-20)
PROC: 0DBW0ZZ Excision of Peritoneum, Open Approach (ICD-10-PCS; 2024-12-20)
PROC: 0UT90ZZ Resection of Uterus, Open Approach (ICD-10-PCS; 2024-12-20)
DX: C56.9 Malignant neoplasm of unspecified ovary (principal); E87.1 Hypo-osmolality and hyponatremia; I10 Essential (primary) hypertension; D50.9 Iron deficiency anemia, unspecified; D75.839 Thrombocytosis, unspecified; M81.0 Age-related osteoporosis without current pathological fracture; N83.319 Acquired atrophy of ovary, unspecified side; Z80.3 Family history of malignant neoplasm of breast
CPT/HCPCS: 36415; 80048; 80053; 85025; 85027; 86850; 86900; 86901; 88304; 88305; 88307; 93005; 97162; C1776